=== PATIENT | male | born 1945 | race Caucasian/White ===

== ENCOUNTER → 2022-01-16 10:49 | Outpatient (CLI) | payer MEDICARE, SELFPAY ==
--- NOTE | ~2022-01-16 | CT_ITS ---
EXAMINATION: CT brain wo con DATE: 01/16/2022 11:09 INDICATION: Altered mental status, unspecified. TECHNIQUE: Computed tomography (CT) of the head was performed without intravenous contrast. The mA wa s adjusted according to patient size. Iterative reconstruction technique was employed. The dose-lengt h product was 599.57 mGy-cm. COMPARISON: None FINDINGS: There are scattered areas of low attenuation in the cerebral white matter. There is no intr acranial hemorrhage, acute infarction, or abnormal intracranial mass lesion. The ventricles are erika l in size. There is mucosal thickening in the paranasal sinuses. The mastoid air cells are normal. IMPRESSION: 1. Moderate nonspecific cerebral white matter disease, which likely represents chronic small vessel i schemic disease. Reviewed, dictated and finalized at location B. IMPRESSION: 1. Moderate nonspecific cerebral white matter disease, which likely represents chronic small vessel ischemic disease.
== END ==
PROVIDERS: PCP Family Medicine; Visit Provider Family Medicine
DX: R41.82 Altered mental status, unspecified (principal); R90.82 White matter disease, unspecified
CPT/HCPCS: 70450

== ENCOUNTER 2022-02-08 13:56 | Outpatient (CLI) | payer MEDICARE, SELFPAY ==
--- NOTE | ~2022-02-08 | US_ITS ---
EXAMINATION: US carotid duplex BI DATE: 02/08/2022 14:41 INDICATION: Cerebral vascular disease TECHNIQUE: Grayscale, color Doppler, and pulsed Doppler images of the cervical carotid arteries were obtained. The degree of vessel stenosis is placed in one of the following categories: normal, <50%, 5 0-69%, >=70% but less than near-occlusion, near-occlusion, or total occlusion. Note that percent sten osis relative to normal distal artery lumen diameter is indirectly measured from velocity measurement s as described by Héctor, et al. Radiology 2003; [id number]:340-346. Notes: Normal: Peak systolic velocity <125 centimeters/sec and no plaque <50%. Peak systolic velocity <125 ( EDV <40; ICA/CCA PSV ratio <2.0; used these factors only a tandem lesions or low cardiac output or co ntralateral disease) 50-69 %: PSV 125-230 (EDV 40-100; ratio 2-4) >= 70% but less than near occlusion: PSV greater than 230 (EDV > 100; ratio> 4.0) Near Occlusion: PSV that is variable; markedly narrowed lumen Occlusion: Absent flow on color/spectral Doppler and no lumen on pennington scale. COMPARISON: None. FINDINGS: RIGHT: The right common carotid artery (CCA) peak systolic velocity (PSV) is 56 cm/s. The right internal car otid artery (ICA) PSV is 51 cm/s. The right ICA end-diastolic velocity (EDV) is 14 cm/s. The right IC A/CCA PSV ratio is 0.9. The external carotid artery (ECA) PSV is 64 cm/s. There is antegrade flow in the right vertebral artery. LEFT: The left CCA PSV is 62 cm/s. The left ICA PSV is 56 cm/s. The left ICA EDV is 22 cm/s. The left ICA/C CA PSV ratio is 0.9. The ECA PSV is 99 cm/s. There is antegrade flow in the left vertebral artery. IMPRESSION: 1. Less than 50% stenosis in the right internal carotid artery by sonographic criteria. 2. Less than 50% stenosis in the left internal carotid artery by sonographic criteria. Reviewed, dictated and finalized at location A. IMPRESSION: 1. Less than 50% stenosis in the right internal carotid artery by sonographic maicol palacios. 2. Less than 50% stenosis in the left internal carotid artery by sonographic [place].
== END 2022-02-08 13:57 | disposition home or self-care (01) ==
PROVIDERS: PCP Family Medicine; Visit Provider Family Medicine
DX: I67.9 Cerebrovascular disease, unspecified (principal); I65.23 Occlusion and stenosis of bilateral carotid arteries
CPT/HCPCS: 93880

== ENCOUNTER 2022-03-23 07:13 | Outpatient (RCR) | payer MEDICARE, SELFPAY | END 2022-06-13 09:48 | disposition home or self-care (01) | LOC: ANHDMC 07:13 | PROVIDERS: PCP Family Medicine; Visit Provider Family Medicine | DX: E11.65 Type 2 diabetes mellitus with hyperglycemia (principal); E66.9 Obesity, unspecified | CPT/HCPCS: 99199 ==

== ENCOUNTER 2022-06-12 10:14 | Outpatient (RCR) | payer MEDICARE, SELFPAY ==
[2022-06-12 12:03] VITALS: BMI 32.0
--- NOTE | 2022-06-26 14:22 | PCWOUND ---
CWON NOTE Patient's spouse called to cancel appointment for today at 1030. States patient was seen by his american sign language interpreter last week and said they do not need to come back as wound is almost closed. No future appointments made.
== END 2022-08-28 10:18 | disposition home or self-care (01) ==
LOC: ANHWOC 10:14
PROVIDERS: PCP Family Medicine; Visit Provider Nurse Practitioner Family
DX: S21.102D Unspecified open wound of left front wall of thorax without penetration into thoracic cavity, subsequent encounter (principal)
CPT/HCPCS: 99213; 99214; G0463

== ENCOUNTER 2023-03-30 13:30 | Outpatient (CLI) | payer MEDICARE, SELFPAY ==
[2023-03-30 13:55] LABS: Alanine Aminotransferase 20 U/L (6-50); Albumin Level 4.2 g/dL (3.5-5.1); Alkaline Phosphatase 197 U/L (38-126); Anion Gap 8 mmol/L (8-16); Aspartate Amino Transferase 30 U/L (17-59); Bilirubin,Total 1.2 mg/dL (0.2-1.3); Blood Urea Nitrogen 37 mg/dL (9-20); Calcium 9.2 mg/dL (8.4-10.2); Carbon Dioxide 25 mmol/L (22-30); Chloride 106 mmol/L (98-107); Estimated Glomerular Filt Rate 39; Glucose 120 mg/dL (65-110); Sodium 139 mmol/L (137-145)
== END 2023-03-30 13:31 | disposition home or self-care (01) ==
PROVIDERS: PCP Family Medicine; Visit Provider Physician Assistant
DX: N17.9 Acute kidney failure, unspecified (principal); E87.5 Hyperkalemia
CPT/HCPCS: 36415; 80053

== ENCOUNTER 2023-04-17 13:49 | Outpatient (CLI) | payer MEDICARE, SELFPAY ==
--- NOTE | ~2023-04-17 | CT_ITS ---
CT Scan of the Chest without Contrast: Clinical Indication: Pulmonary nodule Technique: Contiguous sections were acquired throughout the chest without intravenous contrast. Dose reduction technique was used on this scan by utilizing automated exposure control and iterative recon struction technique. The dose-length product (DLP) was 232.05 mGy-cm. Findings: There is no evidence of any significant mediastinal, hilar or axillary lymphadenopathy. Small calcifi ed mediastinal and right hilar lymph nodes are present. Pacemaker device present. Atherosclerotic hansa cifications of the coronary arteries are present. No pericardial effusion. Moderate right pleural effusion is present with minimal right basilar atelectatic change. No left ple ural effusion. The lungs are clear. No pulmonary nodules or infiltrates are noted. Images through the upper abdomen reveal calcified splenic and hepatic granulomas. Impression: Moderate right pleural effusion. Evidence of prior granulomatous disease. Reviewed, dictated and finalized at [facility]. Impression: Moderate right pleural effusion. Evidence of prior granulomatous disease.
== END 2023-04-17 13:50 | disposition home or self-care (01) ==
PROVIDERS: PCP Family Medicine; Visit Provider Physician Assistant
DX: R91.1 Solitary pulmonary nodule (principal); J90 Pleural effusion, not elsewhere classified
CPT/HCPCS: 71250

== ENCOUNTER 2023-07-20 09:44 | Outpatient (CLI) | payer MEDICARE, SELFPAY ==
--- NOTE | ~2023-07-20 | CT_ITS ---
CT Scan of the Chest without Contrast: Clinical Indication: Moderate pleural effusion Technique: Contiguous sections were acquired throughout the chest without intravenous contrast. Dose reduction technique was used on this scan by utilizing automated exposure control and iterative recon struction technique. The dose-length product (DLP) was 385.44 mGy-cm. COMPARISON: 04/17/2023 Findings: Shotty mediastinal lymph nodes are similar to prior exam. Calcified subcarinal and right hilar nodes are present. Pacemaker device is present. No pericardial effusion. No aortic aneurysm. [id number] right pleural effusion is similar to prior exam. No left pleural effusion. There is patchy airspace consolidation extensively involving the left upper lobe, with more focal inv olvement in the superior segment left lower lobe, and in the right lower lobe. Images through the upper abdomen reveal no abnormalities. Impression: Multifocal pneumonia, with extensive involvement of the left upper lobe, and more focal involvement i n the superior segment left lower lobe and in the right lower lobe. Stable small to moderate right pleural effusion. Reviewed, dictated and finalized at location . Impression: Multifocal pneumonia, with extensive involvement of the left upper lobe, and mo re focal involvement in the superior segment left lower lobe and in the right l ower lobe. Stable small to moderate right pleural effusion.
== END 2023-07-20 09:45 | disposition home or self-care (01) ==
PROVIDERS: PCP Family Medicine; Visit Provider Physician Assistant
DX: J90 Pleural effusion, not elsewhere classified (principal); J18.9 Pneumonia, unspecified organism
CPT/HCPCS: 71250

== ENCOUNTER 2023-12-25 13:16 | Outpatient (CLI) | payer MEDICARE, SELFPAY ==
--- NOTE | ~2023-12-25 | XR_ITS ---
XR chest 2V 12/25/2023 13:36 Indication: Pneumonia. Procedure: 2 view chest Comparison: CT dated 07/20/2023 Findings: Cardiomegaly. Pacemaker leads in expected position. There are infiltrates of the left mid a nd right lower lung. No significant effusion. No pneumothorax. No acute osseous abnormality. 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 Impression: 1: Bilateral infiltrates of the left mid and right lower lung which may represent atelectasis or pneu monia. Reviewed, dictated and finalized at location L. Impression: 1: Bilateral infiltrates of the left mid and right lower lung which may represe nt atelectasis or pneumonia.
== END 2023-12-25 13:17 | disposition home or self-care (01) ==
PROVIDERS: PCP Family Medicine; Visit Provider Physician Assistant
DX: J90 Pleural effusion, not elsewhere classified (principal); R06.02 Shortness of breath; R93.89 Abnormal findings on diagnostic imaging of other specified body structures; J18.9 Pneumonia, unspecified organism
CPT/HCPCS: 71046